=== PATIENT | female | born 1990 | race African-American/Black ===

== ENCOUNTER 2016-12-21 12:08 | Inpatient (IN) ==
--- NOTE | 2016-12-21 15:39 | Ultrasound Report ---
History: History of delivery Date: 12/21/2016 Study: Obstetrical ultrasound greater than 14 weeks Comparison exam: No previous similar this available Real-time ultrasound images are captured and archived. There is a single intrauterine fetus in vertex presentation with a heart rate of 130 bpm. The placenta is right lateral without evidence of previa. The ISAIAH measures a normal 11.8 cm. There is a three-vessel umbilical cord with normal cord insertion. lips and nares, profile, four-chamber heart view, and stomach bubble are identified and appear normal. The spine and kidneys are not well seen because of positioning and body habitus. The bladder is visualized and is grossly unremarkable. No masses of the maternal myometrium are identified. The maternal ovaries are not demonstrated. BPD 84 mm or 33 weeks 5 days Head circumference 290 mm or 31 weeks 6 days Abdominal circumference 3 and 24 mm or 36 weeks 2 days Femur length 66 mm or 33 weeks 6 days The fetus measures in the 15.1 percentile based on EFW. The head circumference to abdominal circumference ratio is slightly decreased 0.89. The femur length to head circumference ratio is slightly increased at 22.67. Impression: Single intrauterine fetus in vertex presentation with an ultrasound gestational age of 34 weeks 0 days +/- 17 days, AVELINO February 01, 2016, and EFW 2552 g +/- 393 g. motion and cardiac activity are noted during real-time sonography. PROCEDURE INTERPRETED AT [facility] DEPARTMENT OF RADIOLOGY Final Report Signed by: Dr. Elysia Blood
[2016-12-21] MEDS ORDERED: ONDANSETRON 4 MG/2 ML VIAL IV PRN (16:10)
[2016-12-21] MEDS ORDERED: BUTORPHANOL 2 MG/ML VIAL IV PRN (16:10)
[2016-12-21] MEDS ORDERED: FAMOTIDINE 20 MG/2 ML VIAL IV ONE (16:13)
[2016-12-21] MEDS ORDERED: ONDANSETRON 4 MG/2 ML VIAL IV ONE (16:13)
[2016-12-21] MEDS ORDERED: CITRIC ACID/SODIUM CITRATE 30 ML UDCUP PO ONE (16:13)
[2016-12-21] MEDS ORDERED: LACTATED RINGERS 1,000 ML IV ONE (16:13)
[2016-12-21] MEDS ORDERED: PROMETHAZINE 25 MG/1 ML VIAL IM ONE (16:13)
[2016-12-21] MEDS ORDERED: ePHEDrine 50 MG/ML AMP IV PRN (16:13)
[2016-12-21] MEDS ORDERED: fentaNYL 2 MCG/ROPIV 0.2% EPID 150 ML EPIDURAL SCH (16:13)
[2016-12-21] MEDS ORDERED: diphenhydrAMINE 50 MG/1 ML VIAL IV PRN ×2 (16:13)
[2016-12-21] MEDS ORDERED: hydrOXYzine HCL 25 MG/1 ML VIAL IM PRN (16:13)
[2016-12-21] MEDS ORDERED: LACTATED RINGERS 1,000 ML IV SCH (16:30)
[2016-12-21] MEDS ORDERED: AMPICILLIN INJ 2,000 MG in SODIUM CHLORIDE 0.9% 100 ML IV SCH (16:30)
[2016-12-21] MEDS ORDERED: OXYTOCIN/LR 20 UNIT/1,000 ML BAG IV SCH (16:30)
[2016-12-21 16:36] LABS: Basophils % 0.3 % (0.0-0.8); Eosinophils % 0.4 % (0.00-10.9); Hematocrit 34.5 VOL% (35.7-47.0); Hemoglobin 11.4 GM/DL (12.0-16.0); Immature Granulocytes % 0.7 %; Immature Granulocytes Absolute 0.07 #; Lymphocytes # 2.2 10*3/uL (1.4-4.0); Lymphocytes % 21.1 % (21.3-54.2); Mean Corpuscular Hemoglobin 30 PG (27-34); Mean Corpuscular Volume 91.8 FL (87-102); Monocytes # 0.7 10*3/uL (0.11-0.8); Monocytes % 6.6 % (1.7-12.7); Neutrophils # 7.3 10*3/uL (1.4-7.4); Neutrophils % 70.9 % (38.7-73.9); Platelet Count 360 T/CUMM (130-400); Red Blood Count 3.76 MC/CUMM (3.8-5.5); Red Cell Distribution Width 12.8 % (9.3-17.3); White Blood Count 10.2 T/CUMM (4-12)
[2016-12-21 17:01] LABS: Bilirubin,Total 0.5 MG/DL (0.2-1.0); Calcium 9.1 MG/DL (8.5-10.1); Osmolality,Calculated 270.8 MOS/KG (273-304); Potassium 4.3 MMOL/L (3.5-5.1)
--- NOTE | 2016-12-21 19:55 | OB/GYN History & Physical ---
History of Present Illness Chief complaint: Contractions History of present illness: Ms. Gottlieb is a 26 year old female who presented to L&D early this afternoon with c/o contractions for 2 days. After being monitored for a couple of hours, pt reported that the contractions were much less intense and less close together. U/s was done to confirm growth as she was to due have one at the end of the week. As the patient was dressing, AROM. Checked and found to be 4 cm. No complications with this . H/o 36 week delivery. No medical or surgical history. Home Medications Medication Instructions Recorded Confirmed Type Vits #90/Iron Fum/FA 1 each PO DAILY 12/21/16 12/21/16 History [ Formula Tablet] Allergies Allergy/AdvReac Type Severity Reaction Status Date / Time No Known Allergies Allergy Verified 12/12/14 10:21 Medical,Surgical,& Family Hx - Medical History HEENT: History of: Eye Problem (lazy eye) Respiratory: No history of: Respiratory Problems Musculoskeletal: No history of: Amputation Reproductive: No history of: Ectopic , Complication - Surgical History Cardiac Surgeries: Patient Denies: Cardiac Catheterization Thoracic Surgeries: Patient denies;: Organ Transplant, Lobectomy Neurologic Surgeries: Patient denies: Neurologic Surgery HEENT Surgeries: Patient denies: Tonsilectomy & Adenoidectomy Abdominal Surgeries: Patient denies: Abdominal Surgery Reproductive Surgeries: Patient denies;: Genitourinary Surgery, Gynecologic Surgery - Family History Family History: Reports;: Family Diabetes (dad) Denies;: Family Anesthesia Reaction, Family Hypertension (dad mother) - Social History Smoking Status: Never smoker Frequency of Alcohol Use: None 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 - Constitutional General appearance: normal weight, no acute distress - Head Head exam: Present: normal inspection, normocephalic - Eye Eye exam: Present: EOMI Pupils: Present: JOCELINE - Respiratory Respiratory exam: Present: clear to auscultation bilaterally - Cardiovascular Cardiovascular exam: Present: regular rate and rhythm - GI/Abdominal GI/Abdominal exam: Present: soft, other (FHTs reassuring) Assessment and Plan (1) 36 weeks gestation of Status: Acute Current Visit: Yes (2) Premature rupture of membranes Status: Acute Assessment and plan: Epidural and pitocin Anticipate Current Visit: No Results - Labs CBC & BMP: 12/21/16 16:30 12/21/16 16:30
--- NOTE | 2016-12-21 20:02 | Event Note ---
DELIVERY NOTE Pt was never able to obtain epidural because of anesthesia service unavailabilty. Pt noted to be 6 cm at 1915. Called at 192 to say patient was complete and ready to push. Arrived at 194, pt delivered. of female infant in cephalic presentation after pushing for less than 5 minutes. 5lbs 6 oz. APGARS 8/9. Spontaneous delivery of intact placenta. EBL 300 cc. Right labial laceration, hemostatic. NICU present for delivery. Mom and baby doing well.
[2016-12-21] MEDS ORDERED: oxyCODONE/ACETAMINOPHEN 5-325 MG TABLET PO PRN (21:26)
[2016-12-21] MEDS ORDERED: BISACODYL 10 MG SUPP RECTAL PRN (21:26)
[2016-12-21] MEDS ORDERED: BENZOCAINE 20%/MENTHOL 0.5% SPRAY 56 GM CAN TOP PRN (21:26)
[2016-12-21] MEDS ORDERED: RHO(D) IMMUNE GLOBULIN 300 MCG SYRINGE IM ONE (21:26)
[2016-12-21] MEDS ORDERED: MEASLES/MUMPS/RUBELLA VACCINE 0.5 ML VIAL SUBCUT ONE (21:26)
[2016-12-21] MEDS ORDERED: WITCH HAZEL PADS 100/JAR TOP PRN (21:26)
[2016-12-21] MEDS ORDERED: LANOLIN 50% CREAM 0.3 OZ TUBE TOP PRN (21:26)
[2016-12-21] MEDS ORDERED: HYDROCORTISONE 2.5% RECTAL CREAM 30 GM TUBE TOP PRN (21:26)
[2016-12-21] MEDS ORDERED: ACETAMINOPHEN 325 MG TABLET PO PRN (21:26)
[2016-12-21] MEDS ORDERED: DIPH/TET/ACEL PERT BOOSTER VACCINE 0.5 ML VIAL IM ONE (21:26)
[2016-12-21] MEDS: DOCUSATE SODIUM 100 MG CAPSULE PO SCH (21:55)
[2016-12-21] MEDS: IBUPROFEN 800 MG TABLET PO PRN (21:55)
[2016-12-21] MEDS: oxyCODONE/ACETAMINOPHEN 5-325 MG TABLET PO PRN (23:49)
[2016-12-22 07:01] LABS: Basophils % 0.1 % (0.0-0.8); Eosinophils % 0.2 % (0.00-10.9); Hematocrit 30.7 VOL% (35.7-47.0); Hemoglobin 10.3 GM/DL (12.0-16.0); Immature Granulocytes % 0.4 %; Immature Granulocytes Absolute 0.06 #; Lymphocytes # 2.4 10*3/uL (1.4-4.0); Lymphocytes % 16.8 % (21.3-54.2); Mean Corpuscular HGB Conc 33.6 GM/DL (32-36); Mean Corpuscular Hemoglobin 31 PG (27-34); Mean Corpuscular Volume 91.4 FL (87-102); Mean Platelet Volume 10.1 FL (9.6-12.0); Monocytes # 1.1 10*3/uL (0.11-0.8); Monocytes % 7.9 % (1.7-12.7); Neutrophils # 10.5 10*3/uL (1.4-7.4); Neutrophils % 74.6 % (38.7-73.9); Platelet Count 305 T/CUMM (130-400); Red Blood Count 3.36 MC/CUMM (3.8-5.5); Red Cell Distribution Width 12.8 % (9.3-17.3); White Blood Count 14.1 T/CUMM (4-12)
[2016-12-22] MEDS: DOCUSATE SODIUM 100 MG CAPSULE PO SCH ×2 (09:59→20:32)
--- NOTE | 2016-12-22 11:37 | OB/GYN Progress Note ---
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 No complaints Exam PROCESS PLANNER - Constitutional Vitals: Vital Signs Temp Pulse Resp BP Pulse Ox 12/22/16 11:20 98 F 71 20 90/52 98 12/22/16 07:18 97 F L 62 20 100/64 97 12/22/16 06:00 16 12/22/16 04:00 97 F L 60 20 104/60 98 12/22/16 02:00 16 12/22/16 00:15 97.2 F L 63 20 94/64 100 12/21/16 23:08 16 12/21/16 23:07 60 16 93/63 100 12/21/16 22:15 69 20 101/66 99 12/21/16 21:45 65 20 110/67 100 12/21/16 21:15 97.1 F L 66 20 105/84 97 12/21/16 20:00 97.3 F L 63 17 108/55 98 General appearance: no acute distress - Head Head exam: Present: normocephalic - Eye Eye exam: Present: EOMI Pupils: Present: JOCELINE - GI/Abdominal GI/Abdominal exam: Present: soft. Absent: tenderness Results - Labs CBC & BMP: 12/22/16 06:51 12/21/16 16:30
[2016-12-22] MEDS: oxyCODONE/ACETAMINOPHEN 5-325 MG TABLET PO PRN ×2 (15:56→22:48)
[2016-12-22] MEDS: IBUPROFEN 800 MG TABLET PO PRN ×2 (15:56→22:48)
[2016-12-23] MEDS: DOCUSATE SODIUM 100 MG CAPSULE PO SCH (08:09)
[2016-12-23] MEDS: IBUPROFEN 800 MG TABLET PO PRN (08:09)
[2016-12-23] MEDS: oxyCODONE/ACETAMINOPHEN 5-325 MG TABLET PO PRN (08:09)
[2016-12-23 11:33] VITALS: BP 94/68
--- NOTE | 2016-12-23 11:41 | Discharge Summary ---
Hospital Course - Hospital Course Hospital Course: Routine course. No complications. Feels good today. ready to go home Diagnosis - Discharge Diagnosis (1) 36 weeks gestation of Status: Acute (2) Premature rupture of membranes Status: Acute (3) Vaginal delivery Status: Acute Specialty Discharge - Follow Up or Referrals Follow up with: Keeley Handy MD [Primary Care Provider] - Discharge Plan - Discharge Data Disposition: Disch To Home/Self Care Condition at Discharge: Stable Discharge Diet: advance to your usual diet Activity: other (routine ) Hygiene: may shower Weight Bearing at Discharge: full weight bearing Driving: no restrictions Contact your physician if you experience:: fever over 101, Difficulty voiding, Redness or swelling, Nausea/Vomiting - Discharge Medications New Ibuprofen Tab [Motrin Tab] 800 mg PO Q6H PRN #20 tablet PRN Reason: Pain Moderate (4-7) No Action Vits #90/Iron Fum/FA [ Formula Tablet] 1 each PO DAILY - Follow Up or Referral Follow Up: Keeley Handy MD [Primary Care Provider] - - Forms/Instructions Instructions: Perineal Care (DC), Vaginal Delivery (DC), Bleeding (DC) Exam - Constitutional Vitals: Period Temp Pulse Resp BP Sys/Baeza Pulse Ox Last 24 Hr 97.1 F-98.0 F 62-98 18-20 94-116/63-78 98-99 General appearance: no acute distress - Head Head exam: Present: normal inspection, normocephalic - Eye Eye exam: Present: EOMI Pupils: Present: JOCELINE - GI/Abdominal GI/Abdominal exam: Present: soft. Absent: tenderness DS: Provider Date of admission: 12/21/16 16:05 Primary care physician: Keeley Handy MD Attending physician on admission: Keeley Handy MD Consults: 12/21/16 21:26 Consult to Solar Consultant [CONS] Routine Consult Solar Consultant: Breast Feeding Discharging clinician: Keeley Handy MD
== END 2016-12-23 12:30 | disposition home or self-care (01) | DRG 560 ==
LOC: N.LDOUT 12:08 → N.LD 12:10 → N.OB 21:15
PROVIDERS: ADMIT Obstetrics & Gynecology; ATTEND Obstetrics & Gynecology

== ENCOUNTER 2018-05-27 10:02 | Inpatient (IN) ==
[2018-05-27 10:53] LABS: Apearance,Urine CLOUDY (Clear); Bacteria,Urine Moderate /HPF (Few); Bilirubin,Urine Negative (Negative); Blood, Urine Negative (Negative); Glucose,Urine (UA) Negative (Negative); Ketones,Urine Negative (Negative); Mucus,Urine Occasional /LPF (Occasional); Nitrite,Urine Negative (Negative); Protein,Urine Negative; RBC,Urine 1 /HPF (0-4); Squamous Epithelial Cell,Urine Moderate /HPF (0-10); Urine Color Yellow (Yellow); Urine Specific Gravity 1.011 (1.001-1.035); WBC,Urine 3 /HPF (0-6)
[2018-05-27] MEDS ORDERED: MEPERIDINE 50 MG/1 ML VIAL IV PRN (13:33)
[2018-05-27] MEDS ORDERED: ONDANSETRON 4 MG/2 ML VIAL IV PRN (13:33)
[2018-05-27] MEDS ORDERED: diphenhydrAMINE 50 MG/1 ML VIAL IV PRN (13:36)
[2018-05-27] MEDS ORDERED: ePHEDrine 50 MG/ML AMP IV PRN (13:36)
[2018-05-27] MEDS ORDERED: PROMETHAZINE 25 MG/1 ML VIAL IM PRN (13:36)
[2018-05-27] MEDS ORDERED: FAMOTIDINE 20 MG/2 ML VIAL IV ONE (13:36)
[2018-05-27] MEDS ORDERED: LACTATED RINGERS 1,000 ML IV ONE (13:36)
[2018-05-27] MEDS ORDERED: NALOXONE 0.4 MG/ML VIAL IV PRN (13:36)
[2018-05-27] MEDS ORDERED: hydrOXYzine HCL 25 MG/1 ML VIAL IM PRN (13:36)
[2018-05-27] MEDS ORDERED: CITRIC ACID/SODIUM CITRATE 30 ML UDCUP PO ONE (13:36)
[2018-05-27] MEDS: LACTATED RINGERS 1,000 ML IV SCH ×3 (13:55→22:14)
[2018-05-27] MEDS ORDERED: OXYTOCIN/LR 20 UNIT/1,000 ML BAG IV SCH (14:00)
[2018-05-27] MEDS ORDERED: fentaNYL 2 MCG/ROPIV 0.2% EPID 100 ML EPIDURAL SCH (14:00)
[2018-05-27 14:14] LABS: Basophils % 0.3 % (0.0-0.8); Eosinophils # 0.1 10*3/uL (0.0-0.87); Eosinophils % 0.7 % (0.00-10.9); Hematocrit 32.1 VOL% (35.7-47.0); Hemoglobin 10.2 GM/DL (12.0-16.0); Immature Granulocytes % 0.3 %; Immature Granulocytes Absolute 0.03 #; Lymphocytes % 20.5 % (21.3-54.2); Mean Corpuscular HGB Conc 31.8 GM/DL (32-36); Mean Corpuscular Hemoglobin 30 PG (27-34); Mean Corpuscular Volume 95.5 FL (87-102); Mean Platelet Volume 9.9 FL (9.6-12.0); Monocytes # 0.6 10*3/uL (0.11-0.8); Neutrophils # 7.1 10*3/uL (1.4-7.4); Neutrophils % 72.2 % (38.7-73.9); Platelet Count 327 T/CUMM (130-400); Red Blood Count 3.36 MC/CUMM (3.8-5.5); Red Cell Distribution Width 13.2 % (9.3-17.3); White Blood Count 9.8 T/CUMM (4-12)
[2018-05-27 14:36] LABS: Albumin 2.6 G/DL (3.4-5.0); Bilirubin,Total 0.6 MG/DL (0.2-1.0); Calcium 8.7 MG/DL (8.5-10.1); Osmolality,Calculated 270.7 MOS/KG (273-304); Potassium 3.9 MMOL/L (3.5-5.1); Total Protein 7.4 G/DL (6.4-8.3); Uric Acid 3.5 MG/DL (2.6-6.0)
[2018-05-27 16:10] LABS: Apearance,Urine CLEAR (Clear); Bilirubin,Urine Negative (Negative); Blood, Urine Negative (Negative); Glucose,Urine (UA) Negative (Negative); Hyaline Casts,Urine 1 /LPF (0-3); Ketones,Urine 80 mg/dL (Negative); Mucus,Urine Occasional /LPF (Occasional); Nitrite,Urine Negative (Negative); Protein,Urine Negative; RBC,Urine 1 /HPF (0-4); Squamous Epithelial Cell,Urine Occasional /HPF (0-10); Urine Color Yellow (Yellow); Urine Specific Gravity 1.019 (1.001-1.035); WBC,Urine <1 /HPF (0-6)
[2018-05-27] MEDS ORDERED: ACETAMINOPHEN 325 MG TABLET PO PRN (18:24)
[2018-05-27] MEDS ORDERED: BISACODYL 10 MG SUPP RECTAL PRN (18:24)
[2018-05-27] MEDS ORDERED: MAGNESIUM HYDROXIDE SUSP 30 ML UDCUP PO PRN (18:24)
[2018-05-27 18:29] LABS: HIV Antigen/Antibody Result Nonreactive (Nonreactive); Hepatitis B Surface Ag Quant 0.16 Index; Hepatitis B Surface Ag Result Negative (Negative); Rubella Antibody IgG 122.5 IU/ML
[2018-05-27] MEDS: DOCUSATE SODIUM 100 MG CAPSULE PO SCH (20:44)
[2018-05-27] MEDS: IBUPROFEN 800 MG TABLET PO PRN (20:44)
[2018-05-27] MEDS ORDERED: OXYTOCIN/LR 20 UNIT/1,000 ML BAG IV ONE (23:04)
[2018-05-28] MEDS: IBUPROFEN 800 MG TABLET PO PRN ×2 (04:49→19:11)
[2018-05-28] MEDS: LACTATED RINGERS 1,000 ML IV SCH ×2 (05:48→22:24)
[2018-05-28 06:43] LABS: Basophils % 0.2 % (0.0-0.8); Eosinophils # 0.1 10*3/uL (0.0-0.87); Hematocrit 30.3 VOL% (35.7-47.0); Hemoglobin 9.8 GM/DL (12.0-16.0); Immature Granulocytes % 0.5 %; Immature Granulocytes Absolute 0.06 #; Lymphocytes # 1.8 10*3/uL (1.4-4.0); Lymphocytes % 14.7 % (21.3-54.2); Mean Corpuscular HGB Conc 32.3 GM/DL (32-36); Mean Corpuscular Hemoglobin 30 PG (27-34); Mean Corpuscular Volume 93.8 FL (87-102); Monocytes # 1.1 10*3/uL (0.11-0.8); Monocytes % 8.8 % (1.7-12.7); Neutrophils # 8.9 10*3/uL (1.4-7.4); Neutrophils % 74.8 % (38.7-73.9); Platelet Count 264 T/CUMM (130-400); Red Blood Count 3.23 MC/CUMM (3.8-5.5); Red Cell Distribution Width 12.9 % (9.3-17.3); White Blood Count 11.9 T/CUMM (4-12)
[2018-05-28] MEDS: DOCUSATE SODIUM 100 MG CAPSULE PO SCH ×2 (09:20→20:38)
[2018-05-28] MEDS: MULTIVITAMIN (PRENATAL) TABLET PO SCH (09:22)
[2018-05-29] MEDS: IBUPROFEN 800 MG TABLET PO PRN (04:28)
[2018-05-29 07:08] VITALS: BP 97/58
[2018-05-29] MEDS ORDERED: ETONOGESTREL 68 MG IMPLANT SUBCUT ONE (09:00)
[2018-05-29] MEDS ORDERED: LIDOCAINE 1% 20 ML VIAL MISC INJ ONE (09:00)
[2018-05-29] MEDS: MULTIVITAMIN (PRENATAL) TABLET PO SCH (09:15)
[2018-05-29] MEDS: DOCUSATE SODIUM 100 MG CAPSULE PO SCH (09:15)
== END 2018-05-29 12:10 | disposition home or self-care (01) | DRG 807 ==
LOC: N.LDOUT 10:02 → N.LD 10:04 → N.OB 20:16
PROVIDERS: ADMIT Obstetrics & Gynecology; ATTEND Obstetrics & Gynecology